=== PATIENT | female | born 1990 | race Caucasian/White ===

== ENCOUNTER → 2023-05-23 13:30 | Outpatient (REF) | payer OTHER, SELFPAY | LOC: PNTC 13:30 | PROVIDERS: ATTENDING PHYSICIAN Obstetrics & Gynecology | DX: Z34.82 Encounter for supervision of other normal pregnancy, second trimester (principal) | CPT/HCPCS: 76805 ==

== ENCOUNTER 2023-10-02 10:09 | Inpatient (IN) | payer OTHER, SELFPAY ==
[2023-10-02 10:12] VITALS: BP 133/89; BMI 27.4
[2023-10-02 10:40] LABS: % Basophils 0.4 % (0-2); % Eosinophils 0.9 % (0-6); % Immature Granulocytes 0.2 % (0-0.5); % Lymphocytes 15.7 % (20.5-51.1); % Monocytes 8.8 % (1.7-9.3); Absolute Eosinophils 0.1 10^3/uL (0-0.7); Absolute Lymphocytes 1.3 10^3/uL (1.2-3.4); Absolute Monocytes 0.7 10^3/uL (0.1-0.6); Absolute Neutrophils 6.2 10^3/uL (1.4-6.5); Hematocrit 30.4 % (37.0-47.0); Hemoglobin 10.4 g/dL (12.0-16.0); Mean Corp Hgb Conc. 34.2 g/dL (33.0-37.0); Mean Corpuscular Volume 90.7 fL (81.0-99.0); Mean Platelet Volume 10.9 fL (7.4-10.4); Nucleated Red Blood Cells % 0 %; Platelet Count 214 10^3/uL (130-400); Red Blood Cell Count 3.35 10^6/uL (4.20-5.40); Red Cell Dist. Width 12.6 % (11.5-14.5); White Blood Cell Count 8.4 10^3/uL (4.8-10.8)
[2023-10-02] MEDS: PITOCIN 30 UNITS/NSS 500 ML IV (10:57)
[2023-10-02] MEDS: SUBLIMAZE 100 MCG EPIDURAL (12:34)
[2023-10-02] MEDS: FENTANYL/BUPIVACAINE 100 EPIDURAL (12:34)
[2023-10-02] MEDS: LR 1000 IV (13:02)
[2023-10-02] MEDS: SENOKOT-S 1 TABLET PO (19:56)
[2023-10-02] MEDS: MOTRIN 600 MG PO (19:56)
[2023-10-02] MEDS: TYLENOL 650 MG PO (19:56)
[2023-10-03] MEDS: MOTRIN 600 MG PO ×2 (04:31→12:37)
[2023-10-03 05:03] LABS: Hematocrit 28.5 % (37.0-47.0); Hemoglobin 9.6 g/dL (12.0-16.0)
[2023-10-03] MEDS: VITAMIN C 500 MG PO (09:01)
[2023-10-03] MEDS: PRENATAL PLUS 1 TABLET PO (09:02)
[2023-10-03] MEDS: FEOSOL 325 MG PO (09:02)
[2023-10-04] MEDS: PRENATAL PLUS 1 TABLET PO (08:32)
[2023-10-04] MEDS: FEOSOL 325 MG PO (08:32)
[2023-10-04] MEDS: VITAMIN C 500 MG PO (08:32)
[2023-10-04 14:44] LABS: Syphilis/T. pallidum Ab Reflex Negative (Negative)
== END 2023-10-04 09:15 | disposition home or self-care (01) | DRG 807 ==
LOC: LDRP 10:09
PROVIDERS: ADMITTING PHYSICIAN Obstetrics & Gynecology; ATTENDING PHYSICIAN Obstetrics & Gynecology
PROC: 10907ZC Drainage of Amniotic Fluid, Therapeutic from Products of Conception, Via Natural or Artificial Opening (ICD-10-PCS; 2023-10-02)
PROC: 10E0XZZ Delivery of Products of Conception, External Approach (ICD-10-PCS; 2023-10-02)
PROC: 0HQ9XZZ Repair Perineum Skin, External Approach (ICD-10-PCS; 2023-10-02)
DX: O70.0 First degree perineal laceration during delivery (principal); Z37.0 Single live birth; Z3A.39 39 weeks gestation of pregnancy; O90.81 Anemia of the puerperium; D64.9 Anemia, unspecified
CPT/HCPCS: 36415; 85014; 85018; 85025; 86780; 86850; 86900; 86901

== ENCOUNTER 2023-11-26 17:00 | Inpatient (IN) | payer OTHER, SELFPAY ==
[2023-11-26] VITALS (15 sets, daily range): BP systolic 57–130; BP diastolic 52–91; BMI 23.3
[2023-11-26 09:07] LABS: % Basophils 0.5 % (0-2); % Eosinophils 2.9 % (0-6); % Immature Granulocytes 0.2 % (0-0.5); % Lymphocytes 17.7 % (20.5-51.1); % Monocytes 10.3 % (1.7-9.3); % Neutrophils 68.4 % (42.2-75.2); Absolute Eosinophils 0.2 10^3/uL (0-0.7); Absolute Monocytes 0.6 10^3/uL (0.1-0.6); Absolute Neutrophils 3.8 10^3/uL (1.4-6.5); Mean Corp Hgb Conc. 33.3 g/dL (33.0-37.0); Mean Corpuscular Hgb 30.5 pg (27.0-31.0); Mean Corpuscular Volume 91.4 fL (81.0-99.0); Mean Platelet Volume 10.5 fL (7.4-10.4); Nucleated Red Blood Cells % 0 %; Platelet Count 197 10^3/uL (130-400); Red Blood Cell Count 3.94 10^6/uL (4.20-5.40); White Blood Cell Count 5.5 10^3/uL (4.8-10.8)
[2023-11-26 09:32] LABS: ALT (SGPT) 20 U/L (0-35); AST (SGOT) 22 U/L (14-36); Albumin 4.1 g/dl (3.5-5.0); Alkaline Phosphatase 108 U/L (38-126); Blood Urea Nitrogen 11 mg/dl (7-17); Calcium 9.5 mg/dl (8.4-10.2); Carbon Dioxide 25 mmol/L (22-30); Chloride 106 mmol/L (98-107); Glucose 98 mg/dl (70-99); Potassium 4.5 mmol/L (3.5-5.1); Sodium 141 mmol/L (135-145); Total Bilirubin 1.3 mg/dl (0.2-1.3); Total Protein 6.6 g/dl (6.3-8.2); eGFR > 60.00
--- NOTE | 2023-11-26 11:01 | ED.GENMED ---
History of Present Illness
General
Chief Complaint: Abdominal Pain
Source: patient
Exam Limitations: none
Time Seen by Provider: 11/26/23 10:36
Nursing documentation reviewed up to this point in time: agreed with
History of Present Illness
History of Present Illness:
33-year-old female with no reported chronic medical issues who is 7 weeks from an uncomplicated normal spontaneous vaginal delivery presents to the ER for evaluation of abdominal pain. Patient reports onset of symptoms 2 days ago and
have been constant since that time. She reports pain located in the right lower quadrant radiates towards the umbilicus. Worse with walking and with laying on the right side. No relieving factors noted. She denies any nausea or vomiting. She
denies any diarrhea or constipation. She denies any dysuria, hematuria, change in urinary frequency, dark or cloudy urine. She denies any vaginal bleeding or discharge ( bleeding has completely resolved, has not yet had a normal
menstrual period since delivery). She denies any fevers or chills. She denies having had similar symptoms in the past. She denies any prior history of abdominal surgeries.
Past History
Past History
ED Past Medical History: None
ED Past Surgical History: None
Social History
Tobacco: Non-smoker
Alcohol: None
Drug: None
Personal: Single
Living: with family
Review of Systems
Review of Systems
All Other Systems: ROS reviewed and negative except as documented in HPI and ROS
Constitutional: Denies fever or chills
Respiratory: Denies trouble breathing
Cardiac: Denies chest pain
ABD/GI: Reports abdominal pain; Denies nausea, vomiting, diarrhea or constipated
: Denies dysuria, frequency, flank pain, bleeding, dark urine or discharge
Musculoskeletal: Denies neck pain or back pain
Neurological: Denies dizzy or headache
Phy Exam
Physical Exam
Physical Exam:
General: Awake, alert, oriented x3; no acute distress
Head: Normocephalic, atraumatic
Eyes: Conjunctiva normal, sclera anicteric
Throat: Airway intact, handling secretions
Neck: Trachea midline, supple without meningismus
Lungs: Clear to auscultation bilaterally, no wheezing, rales, rhonchi
Heart: Regular rate and rhythm, no murmurs, gallops, or rubs
Abd: Soft, non distended, tender to palpation right lower quadrant with voluntary guarding
Back: No CVA tenderness
Neuro: No gross deficits
Skin: no rash
Extremities: No edema in extremities, equal pulses in all extremities
Scores
Heart Failure Risk
Heart Failure Risk Score: Not Applicable
Heart Score for Chest Pain Patients
STEMI patient?: Not applicable
Withdrawal Assessment of Alcohol
Withdrawal Assessment Completed?: Not applicable
Course
Orders/Labs/Results
Orders:
Orders
11/26/23 08:56
Beta HCG Quantitative Urgent
Comment: ADD ON
CMP [Comprehensive Metabolic Panel] Urgent
Complete Blood Count/With Diff Urgent
11/26/23 08:57
Add On- LAB Urgent
Tests Added?: Serum HCG quantitative
11/26/23 10:42
CT Abd/pelvis W Iv Cont Urgent
Comment:
Reason For Exam: RLQ abd pain
11/26/23 11:11
Urinalysis Reflex To Culture Urgent
Date Specimen was Collected: 11/26/23
Time Specimen was Collected: 11:10
Urine Microscopic Reflex Cult Urgent
11/26/23 13:40
CefTRIAXone [Rocephin] 1,000 mg IV NOW STA
MetroNIDAZOLE 500 MG/100 ML [Flagyl 500 mg] 100 ml IV NOW
11/26/23 13:41
SURGICAL CONSULT Urgent
Consulting Provider: Lane Paulino
Was physician already notified: Yes
Abnormal Lab Results
11/26/23 11/26/23
08:56 11:11
RBC 3.94 L 10^6/uL
(4.20-5.40)
Hct 36.0 L %
(37.0-47.0)
MPV 10.5 H fL
(7.4-10.4)
Absolute Lymphs (auto) 1.0 L 10^3/uL
(1.2-3.4)
Lymphocytes % 17.7 L %
(20.5-51.1)
Monocytes % 10.3 H %
(1.7-9.3)
Urine Urobilinogen 3+ A
(Neg - 1+)
Leukocyte Esterase Rfl Trace A
(Negative)
11/26/23 08:56
11/26/23 08:56
Vital Signs
Initial and Last Documented VS:
Initial Vital Signs
Temp Pulse Resp BP Pulse Ox
36.8 C 62 16 92/61 100
11/26/23 08:44 11/26/23 08:44 11/26/23 08:44 11/26/23 08:44 11/26/23 08:44
Last Documented Vital Signs
Temp Pulse Resp BP Pulse Ox
36.8 C 62 16 110/72 99
11/26/23 08:44 11/26/23 08:44 11/26/23 08:44 11/26/23 12:00 11/26/23 12:15
MDM/Problems Addressed
Differential Diagnosis Includes:
Appendicitis, nephrolithiasis, UTI, ovarian cyst, /ectopic
MDM/Problems Addressed:
33-year-old female with no chronic medical issues who is 7 weeks from uncomplicated normal spontaneous vaginal delivery presents to the ER for evaluation of right lower quadrant abdominal pain for the past 2 days. Vitals and exam as
above. Will place an IV check labs including a CBC and a CMP. Check hCG. Check urinalysis. Check CT abdomen pelvis. Monitor closely reassess after the above.
Labs reviewed: CBC and CMP unremarkable. hCG negative. Urinalysis negative for infection. CT abdomen pelvis called back by radiology: Positive for acute pancreatitis with periappendiceal abscess. Will treat with antibiotics Rocephin and Flagyl.
Case discussed with general surgery who admit to their service.
*Radiology
Radiology exam reviewed: radiology read reviewed
*Pulse Oximetry
Patient hypoxic: no
*Critical Care Note
Total Time (30-74mins, 75-104mins- exclusive of procedures): Not Applicable
Data Reviewed
Source: patient
ED Attending Note
-
Portions of this chart may have been created with voice recognition software.� Occasional wrong word or��sound alike� substitutions may have occurred due to the inherent limitations of voice recognition software.
Discharge Plan
Departure
Patient Disposition: Admit
Date of Disposition: 11/26/23
Time of Disposition: 13:49
Admit to doctor: Lora
Presentation/result/management discussed w/ accepting MD/DO: general surgery
Discharge Problem:
Acute appendicitis
Prescriptions:
No Action
vit-iron fum-folic ac [ Tablet] 28 mg iron- 800 mcg Tablet
1 tab PO DAILY
Referrals:
NONE,* [Family Provider] -
Interventions
Interventions:
*Risk Screen - Suicide Last Done: 11/26/23 08:44
*General Assessment Last Done: 11/26/23 08:44
*Neglect/Abuse Screening Last Done: 11/26/23 08:44
ED- Fall Risk Assessment Last Done: 11/26/23 10:57
*ED COVID-19 Vaccine History Last Done: 11/26/23 10:49
UG-Vkzmaz-Zspnyvgznz Assessment Last Done: 11/26/23 10:49
Discharge Date and Time
Print Language: ARMENIAN
[2023-11-26 11:25] LABS: Urine Albumin Trace (Neg - Trace); Urine Bilirubin Negative (Negative); Urine Character Clear (Clear); Urine Color Amber; Urine Glucose Negative (Negative); Urine Ketone Negative (Negative); Urine Leukocyte Trace (Negative); Urine Nitrite Negative (Negative); Urine Occult Blood Negative (Negative); Urine Urobilinogen 3+ (Neg - 1+)
[2023-11-26 11:34] LABS: Urine Squamous Cell 0-2 /LPF (Few)
[2023-11-26 11:35] LABS: Urine Mucus Moderate; Urine Red Blood Cell 0-2 /HPF (0-2)
[2023-11-26 12:13] LABS: Beta HCG Quantitative < 2.39 mIU/ml
--- NOTE | 2023-11-26 13:40 | LACTATION ---
contacted patient. she does not need any care at this time. she has access to a breastpump.
[2023-11-26] MEDS: ROCEPHIN 1000 MG IV (13:52)
[2023-11-26] MEDS: FLAGYL 500 MG 100 IV (14:05)
--- NOTE | 2023-11-26 15:55 | CON.GS ---
Medical History
-
Chief Complaint: RLQ abdominal pain
History of Present Illness:
Patient is a 33 yo F with a PMH notable for approximately 7 weeks ago who presents with several days of RLQ abdominal pain. Ms. Hankins states that she has been having abdominal discomfort for quite some time now, however, attributed her
symptoms to post state. Over the past 24 hours she has had worsening RLQ abdominal pain. She also noted/self-diagnosed Rovsing sign as she lied on her left side and had pain within the RLQ. Her sister who is a nurse was concerned for
appendicitis and instructed her to present to the ER. No fevers or chills. No nausea or vomiting. No fluctuations in GI function. No chronic issues with constipation or diarrhea.
Past Medical History
Past Medical History: None
Past Surgical History: None
Social History
Tobacco: Non-Smoker
Alcohol: Occasional
Drug: None
Personal:
Living: With Family
Employment: Employed
Family History
Family History: Reviewed & Noncontributory
Allergies / Home Medications
Allergy/AdvReac Type Severity Reaction Status Date / Time
No Known Allergies Allergy Verified 11/26/23 08:44
�Medication �Instructions �Recorded �Confirmed �Type
vitamin-ferrous fumarate 1 tab PO DAILY Supplement 10/02/23 11/26/23 History
28 mg iron-folic acid 800 mcg
tablet ( Tablet)
Review of Systems
-
A 10 point review of systems was completed, and was negative except as per HPI.
Physical Exam
Vital Signs
Temp Pulse Resp BP Pulse Ox
98.2 F 62 16 109/79 98
11/26/23 08:44 11/26/23 08:44 11/26/23 08:44 11/26/23 15:00 11/26/23 15:00
11/25/23 11/26/23 11/27/23
06:59 06:59 06:59
Actual Weight 69.6 kg
Body Mass Index (BMI) 23.3
Lab Results
11/26/23 08:56
11/26/23 08:56
WBC 5.5 10^3/uL (4.8-10.8) 11/26/23 08:56
Hgb 12.0 g/dL (12.0-16.0) 11/26/23 08:
Hct 36.0 % (37.0-47.0) L 11/26/23 08:56
Plt Count 197 10^3/uL (130-400) 11/26/23 08:56
Abs Immat Gran (auto) 0.0 10^3/uL (0-0.05) 11/26/23 08:56
Neutrophils % 68.4 % (42.2-75.2) 11/26/23 08:56
Physical Exam
General: Well Developed, Well Nourished and No Apparent Distress
HEENT: Normocephalic and Anicteric
Respiratory: Non Labored Respirations
Cardiac: Regular Rhythm
GI: Soft, Non Distended, Tender (RLQ) and Other (locally peritoneal, no diffuse peritonitis)
Musculoskeletal: No Edema
Skin: Warm and Dry
Neuro: Nonfocal/Grossly Intact
Data Reviewed
-
CT Scan: Image Personally Visualized and interpreted
Labs: Labs Reviewed by me
Assessment / Plan
-
Patient is a 33 yo F p/w perforated appendicitis with associated abscess formation
The natural history and pathophysiology of appendicitis was reviewed. CT scan imaging as a relates to her appendix was reviewed. Time course difficult to definitively pin down, however, suspect her symptoms have been present for longer than 2 days
given the well-formed abscess formation. Options for management including medical management with antibiotics and potential percutaneous drainage versus surgical management with appendectomy were considered and discussed. Pros and cons of both
approaches was discussed. Specifically, we discussed logistical issues with drain placement. We discussed that given the presence of an abscess she is at increased risk for operative complications to include need for an open procedure, potential
concomitant bowel resection, and potential bowel injury. Because of this, recommend antibiotics and IR drainage. Management going forward including the potential need for delayed appendectomy in 4 to 6 weeks was discussed. All questions answered.
-- IR drainage of appendiceal abscess
-- Abx: Zosyn
-- NPO, OK for clears with likely regular tomorrow
-- Pain control: Tylenol and Toradol
-- Admit to Surgery
--- NOTE | 2023-11-26 17:13 | W.PN.UPDATE ---
Update Note
Progress Note Update
CT images obtained before planned drainage demonstrated no safe window for percutaneous drainage. Therefore, drainage was not attempted.
D/W patient.
[2023-11-26] MEDS: ZOSYN 50 IV ×2 (18:09→23:11)
[2023-11-26] MEDS: TYLENOL PO (18:10)
--- NOTE | 2023-11-26 18:20 | PTCARENOTE ---
Patient arrived at 18:20 from ED via stretcher; AAOx3; ambulated to balanced standing scale and bed; admission questions obtained from patient; will give detailed report to nightshift RN to continue with assessment.
[2023-11-26] MEDS: NORMOSOL-R/PLASMALYTE-A 1000 IV (20:59)
[2023-11-26] MEDS: TYLENOL 650 MG PO (21:00)
[2023-11-27] MEDS: TYLENOL PO ×3 (00:01→12:42)
[2023-11-27] MEDS: ZOSYN 50 IV ×2 (04:35→09:05)
[2023-11-27] MEDS: TYLENOL 650 MG PO ×2 (04:37→09:05)
[2023-11-27 06:22] LABS: Hematocrit 33.7 % (37.0-47.0); Hemoglobin 11.1 g/dL (12.0-16.0); Mean Corp Hgb Conc. 32.9 g/dL (33.0-37.0); Mean Platelet Volume 10.9 fL (7.4-10.4); Platelet Count 205 10^3/uL (130-400); Red Blood Cell Count 3.83 10^6/uL (4.20-5.40); White Blood Cell Count 4.8 10^3/uL (4.8-10.8)
[2023-11-27] MEDS: NORMOSOL-R/PLASMALYTE-A 1000 IV (06:22)
[2023-11-27 06:46] LABS: Blood Urea Nitrogen 19 mg/dl (7-17); Calcium 9.3 mg/dl (8.4-10.2); Carbon Dioxide 22 mmol/L (22-30); Chloride 105 mmol/L (98-107); Estimated Creatinine Clearance 80 ml/min; Glucose 71 mg/dl (70-99); Potassium 4.1 mmol/L (3.5-5.1); Sodium 141 mmol/L (135-145); eGFR > 60.00
--- NOTE | 2023-11-27 07:30 | W.PN.GS2 ---
Today's Communication / Plan
-
-- Regular diet
-- Abx: Zosyn, plan for DC on 14 days Augmentin
-- DC later today if stable
-- Plan for repeat CT scan in 2 weeks (earlier if needed, worse pain or fevers)
-- Plan for office follow-up in [address] scan
Assessment / Plan
-
Patient is a 33 yo F p/w perforated appendicitis with associated abscess formation
Unfortunately unable to drain percutaneous with IR. Patient remained stable with a overall benign abdomen, afebrile, normal WBC. Options for management including surgery versus medical management with antibiotics were considered and discussed.
The pros and cons of both approaches was discussed. Specifically, we discussed failure of medical management with worsening abdominal pain and increased size of abscess with potential need for surgery drainage at that time versus surgical
management with high likelihood of needing an open ileocecectomy. Given her stability and delayed presentation with retrocecal appendix, abscess formation, and localized irritation of the small bowel and colon recommend treatment with antibiotics.
All questions answered. updated via phone.
-- Regular diet
-- Abx: Zosyn, plan for DC on 14 days Augmentin
-- Pain control: Tylenol and Ibuprofen
-- DC later today if stable
-- Plan for repeat CT scan in 2 weeks (earlier if needed, worse pain or fevers)
-- Plan for office follow-up in [address] scan
Subjective Data
-
Date of Service: November 27, 2023
Stable. No changes. Pain well-controlled. No nausea or vomiting. No fevers.
Objective Data
-
Intake and Output
11/26/23 11/27/23 11/28/23
06:59 06:59 06:59
Intake Total 1540 / 1540
Balance 1540 / 1540
Intake:
Oral fluids 240 / 240
IV fluids (Total) 1200 / 1200
IV piggybacks 100 / 100
Other:
Number of approximated MODERATE 2
amounts of urine
Vital Signs
Temp Pulse Resp BP Pulse Ox
97.8 F 62 16 101/52 98
11/26/23 23:02 11/26/23 23:02 11/26/23 23:02 11/26/23 23:02 11/26/23 23:02
Lab Results
11/27/23 05:15
11/27/23 05:15
Calcium 9.3 mg/dl (8.4-10.2) 11/27/23 05:15
Total Bilirubin 1.3 mg/dl (0.2-1.3) 11/26/23 08:56
AST 22 U/L (14-36) 11/26/23 08:56
ALT 20 U/L (0-35) 11/26/23 08:56
Alkaline Phosphatase 108 U/L (38-126) 11/26/23 08:56
Total Protein 6.6 g/dl (6.3-8.2) 11/26/23 08:56
Albumin 4.1 g/dl (3.5-5.0) 11/26/23 08:56
Physical Exam
-
Gen: NAD
Abd: soft, mild tenderness in RLQ with deep palpation, ND, no diffuse peritonitis
[2023-11-27 07:45] VITALS: BP 110/70
--- NOTE | 2023-11-27 10:51 | CM ---
Met with pt at bedside
Pt reports she lives with her and 3 children(6yo daughter, 4yo son, 7 week old son); no steps to enter, 12 steps to 2nd fl
Independent, employed FT, drives
DME - none
SNF/HH - no past hx
Has ride home at discharge
PCP - does not currently have PCP. Encouraged to see PCP. Given info physicians
Pharm - [facility]
Plan - anticipate home no needs
[2023-11-27 10:59] VITALS: BP 108/63
[2023-11-27 12:47] VITALS: BP 105/76
== END 2023-11-27 12:52 | disposition home or self-care (01) | DRG 373 ==
LOC: 2 SOUTH 17:00
PROVIDERS: Emergency Medicine; Radiology Vascular & Interventional Radiology; ADMITTING PHYSICIAN Surgery; EMERGENCY PHYSICIAN Emergency Medicine
PROC: 0WJG3ZZ Inspection of Peritoneal Cavity, Percutaneous Approach (ICD-10-PCS; 2023-11-26)
DX: K35.33 Acute appendicitis with perforation, localized peritonitis, and gangrene, with abscess (principal)
CPT/HCPCS: 74177; 76380; 80048; 80053; 81003; 81015; 84702; 85025; 85027; 96365; 96375; 99285; Q9967